=== PATIENT | male | born 1955 | race Caucasian/White ===

== ENCOUNTER 2024-02-14 08:07 | Emergency (ER) | payer OTHER ==
[~2024-02-14] VITALS: Ht 175.3 cm; Wt 97.1 kg
[2024-02-14 08:36] VITALS: BP 132/76
[2024-02-14] MEDS ORDERED: NARCAN4 M1 (09:19)
[2024-02-14] MEDS ORDERED: CEPH500 PO (09:19)
[2024-02-14] MEDS ORDERED: SULTRIDS PO (09:19)
== END 2024-02-14 09:28 | disposition home or self-care (01) ==
LOC: ER 08:07
DX: L03.113 Cellulitis of right upper limb (principal); L03.317 Cellulitis of buttock; F11.90 Opioid use, unspecified, uncomplicated; F17.200 Nicotine dependence, unspecified, uncomplicated
CPT/HCPCS: 99283